=== PATIENT | male | born 1975 | race Hispanic/Latino ===

== ENCOUNTER 2024-10-26 11:40 | Emergency (ER) | payer OTHER ==
[~2024-10-26] VITALS: Ht 172.7 cm; Wt 99.8 kg
[2024-10-26 12:13] LABS: IMMATURE GRANULOCYTE ABSOLUTE 0.05 K/uL (0-1); NUCLEATED RED BLOOD CELLS 0.0 % (0.0-0.19); PLATELET COUNT (AUTO) 211 K/uL (130-400); RED BLOOD CELL COUNT(AUTO) 5.18 MIL/uL (4.50-6.20); RED CELL DISTRIBUTION WIDTH 13.3 % (11.0-15.5); WHITE BLOOD COUNT (AUTO) 9.5 K/uL (4.8-10.8)
[2024-10-26] MEDS: 0.9%NACL 1000ML 1,000 ML IV ONE (12:17)
[2024-10-26 12:24] LABS: CREATININE 0.7 mg/dL (0.5-1.3); GLOMERULAR FILTR. RATE CALC 114.0 mL/min (>90); GLUCOSE,RANDOM 102.0 mg/dL (70-105); SODIUM SERUM 141.0 mmol/L (136-145); UREA NITROGEN, BLOOD 10.0 mg/dL (7-18)
[2024-10-26 12:28] LABS: CREATINE KINASE, TOTAL 91.0 U/L (21-232)
[2024-10-26 12:41] LABS: APPEARANCE,URINE CLEAR (CLEAR); GLUCOSE, URINE (UA) NEGATIVE (NEGATIVE); LEUKOCYTE ESTERASE ,URINE NEGATIVE Leu/uL (NEGATIVE); NITRATE,URINE NEGATIVE (NEGATIVE); OCCULT BLOOD,URINE NEGATIVE (NEGATIVE)
[2024-10-26 12:46] LABS: ADD UA MICROSCOPIC NO
[2024-10-26 12:54] LABS: SARS-CoV-2, RNA, NAAT NEGATIVE SARS CoV-2 (NEGATIVE)
--- NOTE | 2024-10-26 13:07 | EKG ---
[facility] Test Date: 2024-10-26 Test Time: 11:32:15 Pat Name: KENYATTA CUNNINGHAM Department: [facility] Room: Gender: Male [employer]: [id number] : 1975 Requested By: MARINA GODINEZ Order Number: [id number] Reading MD: Measurements Intervals [place] Rate: 75 P: 60 AK: 156 QRS: 45 QRSD: 84 T: 8 QT: 350 QTc: 392 Interpretive Statements Sinus rhythm No previous ECG available for comparison Please click the below link to view image of tracing.
--- NOTE | 2024-10-26 13:12 | HMCIMG ---
EXAM: CR Chest, 1 View. CLINICAL HISTORY: cp COMPARISON: None provided. FINDINGS: LUNGS: The lungs show no infiltrate or other acute finding. PLEURAL SPACES: No pleural effusion or pneumothorax. MEDIASTINUM: Cardiac size and mediastinal contours within normal limits. BONES: No acute osseous abnormality. IMPRESSION: No acute cardiopulmonary pathology is evident. /[place]
[2024-10-26 13:45] VITALS: BP 121/76; PULSE 78; RESP 18; TEMP 98.2; O2SAT 97
--- NOTE | 2024-10-26 14:05 | ERN ---
General Chief Complaint: Shortness of Breath Stated Complaint: CHEST PRESSURE, DIZZINESS, SOB Time Seen by MD: 11:46 Source: patient History of Present Illness Initial Comments In his is a 49-year-old gentleman coming in with multiple complaints. Per patient he has been having cough sort of breath dizziness. Allergies: Coded Allergies: No Known Allergies (Unverified Allergy, Unknown, 10/26/24) Past Medical History Past Medical History: Diverticulosis, High Cholesterol, Sinusitis Medical History Other: CHRONIC NECK PAIN Past Surgical History: Other Surgical History Other: BACK , COLON RESECTION Physical Exam Physical Exam Dictation VITAL SIGNS: Reviewed. GENERAL APPEARANCE: Alert, oriented x3, no acute distress, obese. HEAD AND FACE: Non-traumatic. EYES: PERRL, pink conjunctivas, eyelid no trauma, anterior chamber clear. EARS: Pinnas intact and no signs of trauma or erythema. Ear canals clear and no discharge. TMs erythema. NOSE: No discharge, no bleeding. OROPHARYNX: Mouth normal, teeth no caries, tongue pink. Pharynx erythema. Tonsils no exudates, no abscesses noted. Mucous membrane moist. NECK: Supple, non-tender, no thyromegaly, no masses, no JVD, no bruits. BREAST: Deferred. CHEST: No tenderness, no crepitus, no paradoxical movement, no retractions. LUNGS: Clear, well-ventilated, symmetric, no rales, no wheezing, no rhonchi, no stridor, good breath sounds bilaterally. HEART: Regular rate, regular rhythm, no murmur, no gallops. VASCULAR: No peripheral edema. ABDOMEN: Soft, positive bowel sounds, nondistended, no guarding, nontender, no rebound, no masses no hepatomegaly, no splenomegaly, no Castaneda's sign, no hernias. RECTAL: Deferred. GENITAL: Deferred. NEUROLOGICAL: Normal speech, gross motor function intact, gross sensory function intact. MUSCULOSKELETAL: Neck nontender, full range of motion, back nontender, full range of motion. EXTREMITIES: Nontender, full range of motion. SKIN: Color pink, dry, no turgor, no rash, no lacerations, no abrasions, no contusions. LYMPHATICS: Deferred. Results Laboratory and Microbiology Lab and Micro Result Laboratory Tests Test 10/26/24 12:05 10/26/24 12:25 10/26/24 12:34 White Blood Count 9.5 K/uL (4.8-10.8) Red Blood Count 5.18 MIL/uL (4.50-6.20) Hemoglobin 15.2 g/dL (14.0-18.0) Hematocrit 43.6 % (42-54) Mean Corpuscular Volume 84.2 fL (79-99) Mean Corpuscular Hemoglobin 29.3 pg (27.0-33.0) Mean Corpuscular Hemoglobin Concent 34.9 g/dL (32.0-36.0) Red Cell Distribution Width 13.3 % (11.0-15.5) Platelet Count 211 K/uL (130-400) Mean Platelet Volume 10.9 fL (7.5-10.5) H Immature Granulocyte % (Auto) 0.5 % (0-1) Neutrophils (%) (Auto) 58.3 % (40.0-77.0) Lymphocytes (%) (Auto) 28.7 % (21.0-51.0) Monocytes (%) (Auto) 10.0 % (3.0-13.0) Eosinophils (%) (Auto) 2.0 % (0.0-8.0) Basophils (%) (Auto) 0.5 % (0.0-5.0) Neutrophils # (Auto) 5.6 K/uL (1.8-7.7) Lymphocytes # (Auto) 2.7 K/uL (1.0-4.8) Monocytes # (Auto) 1.0 K/uL (0.1-1.0) Eosinophils # (Auto) 0.19 K/uL (0.00-0.70) Basophils # (Auto) 0.05 K/uL (0.00-0.20) Absolute Immature Granulocyte (auto 0.05 K/uL (0-1) Nucleated Red Blood Cells 0.0 % (0.0-0.19) Sodium Level 141 mmol/L (136-145) Potassium Level 3.5 mmol/L (3.5-5.1) Chloride Level 107 mmol/L (101-111) Carbon Dioxide Level 26 mmol/L (21-32) Blood Urea Nitrogen 10 mg/dL (7-18) Creatinine 0.7 mg/dL (0.5-1.3) Glomerular Filtration Rate Calc 114 mL/min (>90) Random Glucose 102 mg/dL (70-105) Total Calcium 9.1 mg/dL (8.5-10.1) Magnesium Level 1.90 mg/dL (1.80-2.40) Total Creatine Kinase 91 U/L (21-232) Troponin I High Sensitivity 17 ng/L (4-75) Urine Color COLORLESS (YELLOW) Urine Appearance CLEAR (CLEAR) Urine pH 6.5 (5.0-8.0) Urine Specific [place] 1.009 (1.001-1.031) Urine Protein NEGATIVE mg/dL (NEGATIVE) Urine Glucose (UA) NEGATIVE mg/dL (NEGATIVE) Urine Ketones NEGATIVE mg/dL (NEGATIVE) Urine Occult Blood NEGATIVE (NEGATIVE) Urine Nitrate NEGATIVE (NEGATIVE) Urine Bilirubin NEGATIVE mg/dL (NEGATIVE) Urine Urobilinogen 0.2 mg/dL (0.2-1.0) Urine Leukocyte Esterase NEGATIVE Shireen/uL SARS-CoV-2, RNA, NAAT NEGATIVE SARS CoV-2 EKG/XRAY/US/CT/MRI EKG Comment 10/26/2024 time 11:32 a.m. Ventricular rate 75 Sinus rhythm [place] [address] wave elevation or depression X-RAY Comment IMAGING REPORT Signed PATIENT: KENYATTA CUNNINGHAM MR#: [id number] : 1975 SEX: M AGE: 49 LOCATION: [facility] ORDER 1202 STATUS: [facility] REPORT#: [id number] SERVICE 1202 REASON: ORDERING PHYSICIAN: MARINA GODNIEZ MD PROCEDURE: CXR1VW - CHEST 1VW EXAM: CR Chest, 1 View. CLINICAL HISTORY: cp COMPARISON: None provided. FINDINGS: LUNGS: The lungs show no infiltrate or other acute finding. PLEURAL SPACES: No pleural effusion or pneumothorax. MEDIASTINUM: Cardiac size and mediastinal contours within normal limits. BONES: No acute osseous abnormality. IMPRESSION: No acute cardiopulmonary pathology is evident. /[place] DICTATED BY: SHERLYN WHITNEY MD DATE: 10/26/24 1411 ELECTRONICALLY SIGNED BY: SHERLYN WHITNEY MD DATE: 10/26/24 1411 MDM MDM: Differential diagnosis: Sinusitis, COVID, NSTEMI, STEMI, dehydration, Rationale: Tests considered and ordered secondary to shared decision making include: Previous outside records reviewed: Old ER visits. Risk of complication and/or morbidity or mortality of patient management: None Medications-Per medication reconciliation Need for hospitalization: Patient does not meet criteria for hospitalization. Patient is a 49-year-old gentleman coming in with multiple complaints. Patient states he has been having chest pressure generalized body weakness facial disco mfort and dizziness. Laboratory workup within normal limits. On physical exam right tympanic membrane erythema some cerumen impaction on the left tympanic membrane. Sinus pressure nasal turbinate swelling all consistent with sinusitis. Patient will be discharged with oral antibiotics I did advised him appropriate follow up with PCP in 1-2 days. ED Course Orders Procedure Category Date Status Time Cbc With Differential LAB 10/26/24 Complete 12:02 Chest 1vw RAD 10/26/24 Resulted 12:02 12 Lead Ekg Tracing- EKG 10/26/24 Complete Technical 12:02 0.9%Nacl 1000ml (Ns PHA 10/26/24 Complete 1000ml) 12:30 Magnesium LAB 10/26/24 Complete 12:02 Creatine Kinase, Total LAB 10/26/24 Complete 12:02 Troponin I High LAB 10/26/24 Complete Sensitivity 12:02 Urinalysis Profile LAB 10/26/24 Complete 12:02 Basic Metabolic Panel LAB 10/26/24 Complete 12:02 Covid Rna Naat LAB 10/26/24 Complete 12:02 Current Medications Medications (Trade) Dose Ordered Sig/Juliana Route PRN Reason Start Time Stop Time Status Last Admin Dose Admin Sodium Chloride 1,000 ml @ 0 mls/hr ONCE ONCE IV 10/26/24 12:30 10/26/24 12:31 DC 10/26/24 12:17 Vital Signs Date Time Temp Pulse Resp B/P (MAP) Pulse Ox O2 Delivery O2 Flow Rate FiO2 10/26/24 13:45 98.2 78 18 121/76 97 Room Air* 0 10/26/24 12:00 98.8 73 16 123/78 97 Room Air* 0 10/26/24 11:41 99.0 74 16 133/79 98 Room Air 0 DX & DISP Disposition: Discharge Departure Impression: Primary Impression: Sinusitis Condition: Stable Scripts Fluticasone Propionate (Flonase Nasal [place]) 50 Mcg/Actuation [place] 2 SPRAY NS DAILY, #16 GM 0 Refills Prov: MARINA GODINEZ MD 10/26/24 Amoxicillin/Potassium Clav (Amox Tr-K Clv 875-125 mg Tab) 875 Mg-125 Mg Tablet 1 TAB PO BID for 10 Days, #20 TAB 0 Refills Prov: MARINA GODINEZ MD 10/26/24 Additional Instructions: FOLLOW-UP WITH PRIMARY CARE PROVIDER IN 1 TO 2 DAYS. TAKE MEDICATIONS DIRECTED HERE IN THE EMERGENCY ROOM. OKAY TO CONTINUE HOME MEDICATIONS UNLESS OTHERWISE DISCUSSED DURING YOUR VISIT IN THE EMERGENCY ROOM TODAY. RETURN TO YOUR NEAREST EMERGENCY ROOM IF SYMPTOMS WORSEN OR IF THERE IS NO IMPROVEMENT. CALL 911 IF YOU NEED IMMEDIATE ASSISTANCE. TAKE TYLENOL [id number] NEEDED AND IF NO CONTRAINDICATIONS ARE PRESENT. INCREASE ORAL HYDRATION. A WOUND CULTURE OR URINE CULTURE WAS ORDERED HERE IN THE EMERGENCY ROOM DEPARTMENT PLEASE FOLLOW-UP WITH PRIMARY CARE PROVIDER AND ADVISE THEM TO GET REPORTS FROM OUR FACILITY. IF YOU HAD ANY DESTINY WRAP/SPLINTS THAT WERE APPLIED HERE, PLEASE DO NOT REMOVE THEM UNTIL YOU SEE YOUR PRIMARY CARE OR SPECIALTY. Referrals: Referrals: ANA LILIA SY MD (PCP) Time of Disposition: 14:17 MARINA GODINEZ MD Oct 26, 2024 14:05
[2024-10-26] MEDS ORDERED: FLUT16H NS (14:18)
[2024-10-26] MEDS ORDERED: AMOX1TAB16 PO (14:18)
== END 2024-10-26 14:32 | disposition home or self-care (01) ==
LOC: EDH 11:40
DX: J32.9 Chronic sinusitis, unspecified (principal); E78.00 Pure hypercholesterolemia, unspecified; Z20.822 Contact with and (suspected) exposure to COVID-19
CPT/HCPCS: 99285; 96360; 71045; 87635; 82550; 83735; 84484; 80048; 85025; 81003; 36415; 93005; J7030